=== PATIENT | male | born 1965 | race Two or more races ===

== ENCOUNTER 2023-09-03 18:29 | Emergency (ER) | payer OTHER ==
[~2023-09-03] VITALS: Ht 162.6 cm; Wt 68.0 kg
[2023-09-03] MEDS ORDERED: hydrALAZINE HCL 10 MG TABLET PO ONE (19:30)
[2023-09-03] MEDS ORDERED: hydrALAZINE HCL IV 20 MG VIAL IV ONE (20:00)
[2023-09-03] MEDS ORDERED: hydrALAZINE HCL IV 20 MG VIAL ONE (20:04)
[2023-09-03 21:21] VITALS: BP 154/82; TEMP 97.9; O2SAT 100
== END 2023-09-03 21:22 ==
LOC: ER 18:39
DX: R03.0 Elevated blood-pressure reading, without diagnosis of hypertension (principal); Z60.2 Problems related to living alone
CPT/HCPCS: 99283; 96374; J0360

== ENCOUNTER 2023-12-30 21:59 | Emergency (ER) | payer MEDICAID, OTHER ==
[~2023-12-30] VITALS: Ht 162.6 cm; Wt 59.0 kg
[2023-12-30 22:16] VITALS: BP 165/102; TEMP 97.4; O2SAT 99
[2023-12-30] MEDS ORDERED: IBUPROFEN 400 MG TABLET ONE (22:32)
[2023-12-30] MEDS: IBUPROFEN 400 MG TABLET PO ONE (22:34)
[2023-12-30] MEDS ORDERED: HYDR-3972 PO (23:02)
[2023-12-30] MEDS ORDERED: HYDROCODONE/APAP 5/325MG TABLET ONE (23:12)
[2023-12-30] MEDS: HYDROCODONE/APAP 5/325MG TABLET PO ONE (23:16)
== END 2023-12-31 01:25 | disposition home or self-care (01) ==
LOC: ER 22:10
DX: S82.64XA Nondisplaced fracture of lateral malleolus of right fibula, initial encounter for closed fracture (principal); J45.909 Unspecified asthma, uncomplicated; X50.1XXA Overexertion from prolonged static or awkward postures, initial encounter; Y93.89 Activity, other specified; Y92.89 Other specified places as the place of occurrence of the external cause; Y99.8 Other external cause status
CPT/HCPCS: 73610-TC